=== PATIENT | female | born 1950 | race Caucasian/White ===

== ENCOUNTER 2020-10-06 05:19 | Day surgery (SDC) | payer BC ==
[~2020-10-06] VITALS: Ht 170.2 cm; Wt 75.3 kg
[2020-10-06] MEDS ORDERED: CYCL5TAB PO (06:24)
[2020-10-06] MEDS ORDERED: HYDR1TAB53 PO (06:24)
[2020-10-06 06:25] VITALS: BP 134/83
[2020-10-06] MEDS ORDERED: LACTATED RINGERS 1,000 ML IV SCH (06:30)
[2020-10-06] MEDS ORDERED: CHLORHEXIDINE 15 ML UDC MM ONE (06:30)
[2020-10-06] MEDS ORDERED: BUPIVACAINE/PF 0.5% ONE (07:10)
[2020-10-06] MEDS ORDERED: morphine SULFATE/PF 1 MG/ML, 10ML ONE (07:11)
[2020-10-06] MEDS ORDERED: LIDOCAINE/PF 1%, 30ML ONE (07:11)
[2020-10-06] MEDS ORDERED: EPINEPHRINE 1 MG/ML, 1ML ONE (07:11)
[2020-10-06] MEDS ORDERED: VANCOMYCIN 1,000 MG ONE (07:11)
[2020-10-06] MEDS ORDERED: FENTANYL PF 100 MCG/2ML ONE ×2 (07:11→10:48)
[2020-10-06] MEDS ORDERED: PROPOFOL 50 ML ONE ×2 (07:16→08:45)
[2020-10-06] MEDS ORDERED: MIDAZOLAM 1 MG/ML, 2ML ONE (07:16)
[2020-10-06] MEDS ORDERED: FENTANYL PF 250 MCG/5ML ONE ×2 (07:16→09:25)
[2020-10-06] MEDS ORDERED: GENTAMICIN 80 MG/2 ML ONE (08:29)
[2020-10-06] MEDS ORDERED: morphine SULFATE 10 MG/ML, 1ML IVPush PRN (08:30)
[2020-10-06] MEDS ORDERED: MEPERIDINE/PF 25MG/0.5ML IVPush PRN (08:30)
[2020-10-06] MEDS ORDERED: PROMETHAZINE 25 MG/ML, 1ML IVPush PRN (08:30)
[2020-10-06] MEDS ORDERED: LABETALOL 5MG/ML, 20ML IV PRN (08:30)
[2020-10-06] MEDS ORDERED: OXYcodone 5 MG/5 ML ORAL.SOL UDC PO PRN ×2 (08:30→16:00)
[2020-10-06] MEDS ORDERED: EPHEDRINE 50 MG/ML, 1ML IVPush PRN (08:30)
[2020-10-06] MEDS ORDERED: DIPHENHYDRAMINE 50 MG/ML, 1ML IVPush PRN (08:30)
[2020-10-06] MEDS ORDERED: ONDANSETRON 2MG/ML, 2ML IVPush PRN (08:30)
[2020-10-06] MEDS ORDERED: DIAZEPAM 5 MG/ML, 2ML IVPush PRN (08:30)
[2020-10-06] MEDS ORDERED: EPHEDRINE 50 MG/ML, 1ML IM PRN (08:30)
[2020-10-06] MEDS ORDERED: TRANEXAMIC ACID 100 MG/ML, 10ML ONE (08:40)
[2020-10-06] MEDS ORDERED: PROPOFOL 10 MG/ML, 20ML ONE (08:48)
[2020-10-06] MEDS ORDERED: CEFAZOLIN 1,000 MG ONE ×2 (08:48)
[2020-10-06] MEDS ORDERED: DEXAMETHASONE 4 MG/ML, 1ML ONE (08:48)
[2020-10-06] MEDS ORDERED: SUCCINYLCHOLINE 20 MG/ML, 10ML ONE (08:48)
[2020-10-06] MEDS ORDERED: ROCURONIUM 10MG/ML,5ML ONE (08:48)
[2020-10-06] MEDS ORDERED: ONDANSETRON 2MG/ML, 2ML ONE (08:49)
[2020-10-06] MEDS ORDERED: SUGAMMADEX 200 MG/2 ML IVPush ONE (09:07)
[2020-10-06] MEDS ORDERED: OXYcodone 5 MG/5 ML ORAL.SOL UDC ONE ×2 (10:48→10:51)
[2020-10-06] MEDS: FENTANYL PF 100 MCG/2ML IV PRN ×2 (10:51→10:56)
[2020-10-06] MEDS ORDERED: hydrALAzine 20 MG/ML, 1ML ONE (10:54)
[2020-10-06] MEDS ORDERED: LABETALOL 5MG/ML, 20ML ONE (10:58)
[2020-10-06] MEDS ORDERED: DIAZEPAM 5 MG TABLET PO PRN (13:30)
[2020-10-06] MEDS ORDERED: DIAZEPAM 5 MG TABLET ONE (13:50)
== END 2020-10-06 17:00 | disposition home or self-care (01) ==
LOC: OUT 05:19
PROVIDERS: ATTEND Orthopaedic Surgery Orthopaedic Surgery of the Spine
DX: M51.16 Intervertebral disc disorders with radiculopathy, lumbar region (principal); M48.061 Spinal stenosis, lumbar region without neurogenic claudication; M41.86 Other forms of scoliosis, lumbar region; M47.892 Other spondylosis, cervical region; M48.02 Spinal stenosis, cervical region; K75.9 Inflammatory liver disease, unspecified; D69.6 Thrombocytopenia, unspecified; I11.0 Hypertensive heart disease with heart failure; I50.9 Heart failure, unspecified; M81.0 Age-related osteoporosis without current pathological fracture; E66.9 Obesity, unspecified; Z79.899 Other long term (current) drug therapy
CPT/HCPCS: 36415; 63047; 63048; 72100; 80074; 87521; 95938; 95941; C1751; J0171; J0330; J0690; J1100; J1580; J2250; J2405; J2704; J3010; J7120; J2274; J3370